=== PATIENT | female | born 1985 | race Caucasian/White ===

== ENCOUNTER 2019-07-25 08:46 | Outpatient (CLI) | payer OTHER ==
--- NOTE | 2019-07-26 09:51 | Ultrasound Report ---
Reason: SIZE GREATER THAN DATES Procedure Date: 07/25/2019 Accession Number: [id number] / [id number] Procedure: US - OB F/U or Repeat CPT Code: Final Report FULL RESULT: EXAM: FOLLOW-UP OBSTETRICAL ULTRASOUND EXAM DATE: 07/25/2019 09:37 AM. CLINICAL HISTORY: SIZE GREATER THAN DATES. COMPARISON: None. TECHNIQUE: Real-time sonographic evaluation of the fetus performed by the cardiovascular surgical tech. Additional transvaginal imaging to more accurately evaluate cervical length/placental position/etc. Multiple high school admissions representative static images were saved for review. DATING: Established EGA 32 weeks 4 days with MARBIN 09/15/2019 based on provider stated. EGA 34 weeks 4 days with MARBIN 09/01/2019 based on the current ultrasound. GENERAL EVALUATION Coleman . Cardiac activity: 149 bpm. movement: Visualized. Presentation: Cephalic. Placenta: Anterior position. Amniotic fluid: Normal. DALLIN 15.6 cm. MVP 6.57 cm. BIOMETRY Bi-Parietal Diameter (BPD): 8.82 cm, 35 weeks 5 days Head Circumference (HC): 31.86 cm, 35 weeks 6 days Abdominal Circumference (AC): 29.83 cm, 33 weeks 6 days Femur Length (FL): 6.36 cm, 32 weeks 6 days Estimated Weight: 2307 g, 81.5 percentile for weeks/days. Maternal cervix 4.4 cm IMPRESSION: 1. Coleman live intrauterine with gestational age 32 weeks 4 days based on provider stated. Fetus is cephalic with anterior placenta 2. Estimated weight is within expected limits for assigned dating. Estimated weight 81.5% RADIA
== END 2019-07-25 08:47 | disposition home or self-care (01) ==
LOC: DI 08:46
PROVIDERS: ATTEND Advanced Practice Midwife
DX: Z34.83 Encounter for supervision of other normal pregnancy, third trimester (principal)
CPT/HCPCS: 76816

== ENCOUNTER 2019-09-07 13:51 | Emergency (ER) | payer OTHER ==
--- NOTE | 2019-09-07 14:01 | ED Physician Documentation ---
History of Present Illness - Stated complaint Stated Complaint: DIARRHEA - History obtained from History obtained from: Patient - History of Present Illness Timing: Today Pain level max: 0 Pain level now: 0 - Additonal information Additional information: 34-year-old female, 8 days . She states that she had 1/3 degree tear that was repaired after delivery. She states she has had fecal incontinence over the past 2 days. Occasional loose stool. No issues with urination. No numbness. She spoke with OB and was directed here for evaluation. No fevers. No abdominal pain. Review of Systems Constitutional: denies: Fever, Chills GI: denies: Vomiting, Diarrhea : denies: Dysuria, Frequency, Hesitancy Musculoskeletal: denies: Neck pain, Back pain Neurologic: denies: Focal weakness, Numbness, Headache PD PAST MEDICAL HISTORY - Past Medical History Cardiovascular: None Respiratory: None Neuro: None Endocrine/Autoimmune: None GI: None : None Derm: None - Present Medications Home Medications: Ambulatory Orders Medication Instructions Recorded Confirmed Acetaminophen [Tylenol] 650 mg PO Q6H PRN #50 tablet 09/01/19 09/07/19 Ibuprofen [Motrin] 600 mg PO Q6H PRN #30 tablet 09/01/19 09/07/19 oxyCODONE [Roxicodone] 5 mg PO Q4HR PRN #20 tablet 09/01/19 09/07/19 - Allergies Allergies/Adverse Reactions: Allergies Allergy/AdvReac Type Severity Reaction Status Date / Time No Known Drug Allergies Allergy Verified 09/07/19 14:23 - Social History Smoking Status: Never smoker PD ED PE NORMAL - Vitals Vital signs reviewed: Yes - General General: Alert and oriented X 3, No acute distress - HEENT HEENT: Moist mucous membranes - Neck Neck: Supple, no meningeal sign - Cardiac Cardiac: RRR - Respiratory Respiratory: No respiratory distress, Clear bilaterally - Abdomen Abdomen: Non tender, Non distended - Rectal Rectal: Deferred (Deferred perineal exam and rectal exam to OB) - Back Back: No spinal TTP, Other (No tenderness to palpation. No step-off or deformity. No tenderness to palpation or percussion. No signs of infection.) - Derm Derm: Warm and dry - Extremities Extremities: Other (Normal bilateral lower extremity patellar and ankle jerk reflexes. Normal great toe extension bilaterally. 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 Gutierrez, OB who will come and evaluate the patient.) ED course: Patient was seen and evaluated by OB. Dr. Gutierrez recommends continued pelvic re st and will follow-up in the office in 4 days. No indication for imaging at this time. Patient counseled regarding signs and symptoms for which I believe and urgent re-evaluation would be necessary. Patient with good understanding of and agreement to plan and is comfortable going home at this time This document was made in part using voice recognition software. While efforts are made to proofread this document, sound alike and grammatical errors may occur. Departure - Departure Disposition: 01 Home, Self Care Clinical Impression: Perineal laceration during delivery Qualifiers: Perineal laceration degree: third degree Third degree perineal laceration subtype: unspecified Qualified Code(s): O70.20 - Third degree perineal laceration during delivery, unspecified Condition: Good Instructions: Episiotomy Follow-Up: Jasmine Gutierrez MD [Provider Admit Priv/Credential] - (in 4 days) Comments: Follow-up as directed by Dr. Gutierrez today. Return if you worsen. Continue pelvic rest.
[2019-09-07 14:23] VITALS: BP 139/90
--- NOTE | 2019-09-07 14:24 | CONSULTATION NOTE ---
Referring Provider Name of Referring Provider:: Mendez Altamirano MD Consult Date: 09/07/19 Chief Complaint - Chief Complaint Chief Complaint: Fecal incontinence History of Present Illness - History of Present Illness HPI Comment/Other: Pt is at 34yo she presented on PPD 8 from an uncomplicated low forcep assisted delivery with c/o fecal incontinence for several days. Forceps were placed secondary to maternal exhaustion and OP presentation. Delivery was easily accomplished. At the time of delivery a 3a laceration was repaired, with a nearly completely intact rectal sphincter which was reinforced. A right sulcus laceration was also repaired. She notes no urge to have BM on several occasions with very soft/liquid stool coming out. No pain. Taking colace . Has had several other formed BM's without difficulty. History - Past Medical History Respiratory: reports: None Neuro: reports: None Endocrine/Autoimmune: reports: None GI: reports: None REFLEXOLOGIST: reports: None : reports: None Derm: reports: None Meds/Allgy - Home Medications Home Medications: Ambulatory Orders Medication Instructions Recorded Confirmed Acetaminophen [Tylenol] 650 mg PO Q6H PRN #50 tablet 09/01/19 Ibuprofen [Motrin] 600 mg PO Q6H PRN #30 tablet 09/01/19 Vit,Calc76/Iron/Folic 1 tab PO DAILY #100 tablet 09/01/19 [Pnv 29-1 Tablet] oxyCODONE ER [OxyCONTIN] 10 mg PO BID #10 tablet 09/01/19 oxyCODONE [Roxicodone] 5 mg PO Q4HR PRN #20 tablet 09/01/19 - Allergies Allergies/Adverse Reactions: Allergies Allergy/AdvReac Type Severity Reaction Status Date / Time No Known Drug Allergies Allergy Verified 08/30/19 09:39 Review of Systems - All Other Systems All Other Systems: reports: Other (As noted. Otherwise negative) Exam - Physical Exam General Appearance: positive: No acute distress, Alert Abdomen: positive: Non-tender, No distention Rectal: positive: Non-tender, Other (Sphincter and rectum completely intact. Good tone. Uppervagina also intact. Lower third of vaginal mucosal repair open, sutures dissolved. No evidence of infection. Granulation tissue noted. No bleeding.) Conclusion/Plan - Diagnosis Diagnosis: fecal incontinence, mild with intact sphincter and rectum - Plan Plan: Reassured re few episodes of liquid stool. Counseled to DC the colace. Also counseled to keep hydrated and not allow herself to become constipated either. Vaginal musoca will heal by secondary intent. Would not recommend resuturing it at this point. Counseled to continue pelvic rest for the full 6 weeks. Discussed Kegels for the future. Assured that this is not uncommon following difficult second stage of labor such as she had and that it would be expected to resolve. No evidence of rectal or sphincter injury. F/U scheduled in 4 days.
== END 2019-09-07 14:45 | disposition home or self-care (01) ==
LOC: ED 13:51
DX: O99.89 Other specified diseases and conditions complicating pregnancy, childbirth and the puerperium (principal); R15.9 Full incontinence of feces
CPT/HCPCS: 99283; 99284

== ENCOUNTER 2019-09-25 06:49 | Outpatient (CLI) | payer OTHER ==
--- NOTE | 2019-09-25 14:42 | Ultrasound Report ---
PROCEDURE: Pelvic w/Transvaginal INDICATIONS: ABNORMAL UT BLEEDING - POST TECHNIQUE: Real-time scanning was performed of the pelvic organs, with image documentation. Additional endovagi nal scanning was necessary due to incomplete visualization of the adnexal and endometrial structures by transabdominal scanning. COMPARISON: None FINDINGS: Transabdominal scanning: Limited scanning through the kidneys shows no hydronephrosis. No pathologi c free abdominal or pelvic fluid. Endovaginal scanning: Uterus: Uterus is anteverted measuring 10.6 x 4.9 x 6.0 cm. The endometrium measures 7.7 mm in comb ined thickness. There is a large, heterogeneous, nonvascular mass in the cervix measuring 4.8 x 4.6 x 5.2 cm. Ovaries: Right ovary measures 2.6 x 2.3 x 1.6 cm. Left ovary measures 1.9 x 1.9 x 1.0 cm. Ovaries ar e only seen on transabdominal scanning and appear normal in echotexture. IMPRESSION: 1. A 4.8 x 4.6 x 5.2 cm heterogeneous mass in the endocervical canal. On Doppler ultrasound, there is no internal vascularity. Differential diagnoses include a hematoma versus retained products of tay ption. 2. Normal ovaries. The result was discussed with Dr. Peg Cunningham. Reviewed by: Matt Tapia MD on 09/25/2019 2:41 PM PDT Approved by: Matt Tapia MD on 09/25/2019 2:41 PM PDT Station ID: [id number]
== END 2019-09-25 06:50 | disposition home or self-care (01) ==
LOC: DI 06:49
PROVIDERS: ATTEND Advanced Practice Midwife
DX: O99.89 Other specified diseases and conditions complicating pregnancy, childbirth and the puerperium (principal); N88.8 Other specified noninflammatory disorders of cervix uteri
CPT/HCPCS: 76830; 76856

== ENCOUNTER 2019-09-26 09:49 | Outpatient (CLI) | payer OTHER ==
[2019-09-26 10:00] LABS: BASOPHILS % (AUTO) 0.8 %; EOSINOPHILS # (AUTO) 0.1 10^3/uL (0.0-0.7); EOSINOPHILS % (AUTO) 2.4 %; HGB - HEMOGLOBIN 8.9 g/dL (12.0-16.0); LYMPHOCYTES # (AUTO) 1.6 10^3/uL (1.5-3.5); LYMPHOCYTES % (AUTO) 32.7 %; MEAN CORPUSCULAR HEMOGLOBIN 28.7 pg (27.0-31.0); MEAN CORPUSCULAR HGB CONC 30.5 g/dL (32.0-36.0); MEAN CORPUSCULAR VOLUME 94.2 fL (81.0-99.0); MEAN PLATELET VOLUME 9.2 fL (7.9-10.8); MONOCYTES # (AUTO) 0.4 10^3/uL (0.0-1.0); MONOCYTES % (AUTO) 8.5 %; NEUTROPHILS # (AUTO) 2.7 10^3/uL (1.5-6.6); NEUTROPHILS % (AUTO) 55.4 %; PLT - PLATELET COUNT 244 10^3/uL (130-450); RED CELL DISTRIBUTION WIDTH 13.2 % (12.0-15.0); WHITE BLOOD COUNT 4.9 x10^3/uL (4.8-10.8)
== END 2019-09-26 09:50 | disposition home or self-care (01) ==
LOC: LAB 09:49
PROVIDERS: ATTEND Advanced Practice Midwife
DX: N93.9 Abnormal uterine and vaginal bleeding, unspecified (principal)
CPT/HCPCS: 36415; 85025

== ENCOUNTER 2019-10-03 18:30 | Outpatient (CLI) | payer OTHER ==
--- NOTE | 2019-10-04 20:06 | Ultrasound Report ---
PROCEDURE: Pelvic Complete INDICATIONS: F/U POST RETAINED PRODUCTS TECHNIQUE: Real-time transabdominal scanning was performed of the pelvic organs, with image documentation. Ayse ent declined transvaginal imaging secondary to state and postoperative changes. COMPARISON: 09/25/2019 FINDINGS: Uterus: Uterus is anteverted and normal in size at 10.5 x 4.3 x 6.2 cm. Endometrium measures 4 mm i n combined thickness. There is been resolution of the previous cervical mass. No abnormal vascularit y seen in the uterus or cervix. Ovaries: The right ovary measures 4.0 x 2.4 x 3.1 cm for a volume of 15.6 cc. There are less than 12 follicles present. The left ovary measures 4.0 x 1.2 x 3.0 cm for a volume of 7.6 cc. Fewer than 12 follicles present. Other: No free pelvic fluid. Limited scanning through the kidneys shows no hydronephrosis. There i s a nonobstructing 4 mm shadowing calculus in the left kidney. IMPRESSION: 1. Interval resolution of previous endocervical mass suggesting passage of clot or products. 2. Normal ovaries. 3. Nonobstructing left intrarenal calcification. Reviewed by: Mago Alegre MD on 10/04/2019 11:44 AM PDT Approved by: Mago Alegre MD on 10/04/2019 11:44 AM PDT Station ID: [id number]
== END 2019-10-03 18:31 | disposition home or self-care (01) ==
LOC: DI 18:30
PROVIDERS: ATTEND Advanced Practice Midwife
DX: N20.0 Calculus of kidney (principal)
CPT/HCPCS: 76856